=== PATIENT | female | born 1965 | race Caucasian/White ===

== ENCOUNTER 2016-12-26 11:21 | Emergency (ER) | payer BC, OTHER ==
[~2016-12-26] VITALS: Ht 167.6 cm; Wt 165.6 kg
[2016-12-26 11:49] LABS: BILIRUBIN,URINE NEGATIVE (NEG); GLUCOSE,URINE NEGATIVE (NEG); NITRITE,URINE NEGATIVE (NEG); PROTEIN,URINE NEGATIVE (NEG-TRACE); UROBILINOGEN,URINE 0.2 mg/dL (0.2 mg/dL)
--- NOTE | 2016-12-26 11:59 | ED.ADGEN ---
Past Medical History Past Medical History: Fibromyalgia, Other Additional Past Medical Histor: DJD Past Surgical History: Appendectomy, Cholecystectomy, Tubal ligation Additional Information: / PAD Alcohol Use: Occasionally Drug Use: None Adult General Chief Complaint Chief Complaint: ABDOMINAL PAIN HPI HPI Patient is a 51 year old woman, history of degenerative disc disease, fibromyalgia, bowel obstruction 13 years ago after an appendectomy, morbid obesity, who presents to the emergency department with a complaint of crampy abdominal pain located in the periumbilical region 3 days, associated with nausea. Denies any vomiting, states her last bowel movement was this morning, and was loose. Denies any blood in her stool, denies any emesis. States that she 's had more frequent urinations with a past several days, denies any dysuria. Denies any flank pain, any swelling of her extremity is, any chest pain or shortness breath, any fevers or chills. No injuries. Does smoke a half-pack of cigarettes daily, denies any drugs or alcohol. Review of Systems Review of Systems Constitutional: Denies fever or chills. [] Eyes: Denies change in visual acuity. [] HENT: Denies nasal congestion or sore throat. [] Respiratory: Denies cough or shortness of breath. [] Cardiovascular: Denies chest pain or edema. [] GI: Crampy periumbilical abdominal pain, associated nausea, no vomiting, no bloody stools or diarrhea. : Denies dysuria. Complaining of frequency and urgency over the past several days. Musculoskeletal: Denies back pain or joint pain. [] Integument: Denies rash. [] Neurologic: Denies headache, focal weakness or sensory changes. [] Endocrine: Denies polyuria or polydipsia. [] Lymphatic: Denies swollen glands. [] Psychiatric: Denies depression or anxiety. [] Current Medications Current Medications Current Medications Medications (Trade) Dose Ordered Sig/Nino Start Time Stop Time Status Last Admin Dose Admin Ketorolac Tromethamine (Toradol) 10 mg 1X ONCE 12/26/16 12:15 12/26/16 12:16 DC 12/26/16 13:14 10 MG Ondansetron HCl (Zofran) 4 mg 1X ONCE 12/26/16 12:15 12/26/16 12:16 DC 12/26/16 13:12 4 MG Allergies Allergies Allergies Coded Allergies Type Severity Reaction Last Updated Verified Sulfa (Sulfonamide Antibiotics) Adverse Reaction Intermediate VOMITING Yes Physical Exam Physical Exam Constitutional: Well developed, well nourished, no acute distress, non-toxic appearance. [] HENT: Normocephalic, atraumatic, bilateral external ears normal, oropharynx moist, no oral exudates, nose normal. [] Eyes: PERRLA, EOMI, conjunctiva normal, no discharge. [] Neck: Normal range of motion, no tenderness, supple, no stridor. [] Cardiovascular:Heart rate regular rhythm, no murmur, S1, S2, no rubs or gallops. [] Lungs & Thorax: Bilateral breath sounds clear to auscultation, no wheezing, rhonchi, rales. No chest tenderness or crepitus. [] Abdomen: Bowel sounds normal, obese, soft, no tenderness, no rebound, rigidity, no guarding, no masses, no pulsatile masses. [] Skin: Warm, dry, no erythema, no rash. [] Back: No tenderness, no CVA tenderness. [] Extremities: No tenderness, no cyanosis, no clubbing, ROM intact, no edema. [] Neurologic: Alert and oriented X 3, normal motor function, normal sensory function, no focal deficits noted. [] Psychologic: Affect normal, judgement normal, mood normal. [] Current Patient Data Vital Signs Vital Signs Date Time Temp Pulse Resp B/P Pulse Ox O2 Delivery O2 Flow Rate FiO2 12/26/16 14:00 66 15 168/106 99 Room Air 12/26/16 11:48 98.0 98.0 Lab Values Laboratory Tests Test 12/26/16 11:30 12/26/16 11:45 12/26/16 13:10 Urine Collection Type Unknown Urine Color Yellow Urine Clarity Clear Urine pH 6.0 Urine Specific [place] 1.015 Urine Protein Negativemg/dL (NEG-TRACE) Urine Glucose (UA) Negativemg/dL (NEG) Urine Ketones (Stick) Negativemg/dL (NEG) Urine Blood Negative (NEG) Urine Nitrite Negative (NEG) Urine Bilirubin Negative (NEG) Urine Urobilinogen Dipstick 0.2mg/dL (0.2 mg/dL) Urine Leukocyte Esterase Negative (NEG) Urine RBC 0/HPF (0-2) Urine WBC 1-4/HPF (0-4) Urine Squamous Epithelial Cells Mod/LPF Urine Bacteria Mod/HPF (0-FEW) Urine Mucus Mod/LPF Urine Test Negative (NEG) White Blood Count 9.6x10^3/uL (4.0-11.0) Red Blood Count 4.75x10^6/uL (3.50-5.40) Hemoglobin 11.7g/dL (12.0-15.5) L Hematocrit 36.2% (36.0-47.0) Mean Corpuscular Volume 76fL (79-100) L Mean Corpuscular Hemoglobin 25pg (25-35) Mean Corpuscular Hemoglobin Concent 32g/dL (31-37) Red Cell Distribution Width 18.6% (11.5-14.5) H Platelet Count 388x10^3/uL (140-400) Neutrophils (%) (Auto) 63% (31-73) Lymphocytes (%) (Auto) 29% (24-48) Monocytes (%) (Auto) 5% (0-9) Eosinophils (%) (Auto) 2% (0-3) Basophils (%) (Auto) 1% (0-3) Neutrophils # (Auto) 6.1x10^3uL (1.8-7.7) Lymphocytes # (Auto) 2.7x10^3/uL (1.0-4.8) Monocytes # (Auto) 0.4x10^3/uL (0.0-1.1) Eosinophils # (Auto) 0.2x10^3/uL (0.0-0.7) Basophils # (Auto) 0.1x10^3/uL (0.0-0.2) Sodium Level 143mmol/L (136-145) Potassium Level 4.0mmol/L (3.5-5.1) Chloride Level 104mmol/L (98-107) Carbon Dioxide Level 31mmol/L (21-32) Anion Gap 8 (6-14) Blood Urea Nitrogen 12mg/dL (7-20) Creatinine 0.6mg/dL (0.6-1.0) Estimated GFR (Cockcroft-Gault) 106.3 BUN/Creatinine Ratio 20 (6-20) Glucose Level 96mg/dL (70-99) Calcium Level 9.0mg/dL (8.5-10.1) Total Bilirubin 0.2mg/dL (0.2-1.0) Aspartate Amino Transferase (AST) 22U/L (15-37) Alanine Aminotransferase (ALT) 33U/L (14-59) Alkaline Phosphatase 82U/L (46-116) Total Protein 7.2g/dL (6.4-8.2) Albumin 3.5g/dL (3.4-5.0) Albumin/Globulin Ratio 0.9 (1.0-1.7) L Lipase 174U/L (73-393) Influenza Type A Antigen Negative (NEGATIVE) Influenza Type B Antigen Negative (NEGATIVE) Laboratory Tests 12/26/16 13:10 Laboratory Tests 12/26/16 13:10 EKG EKG [] Interpretation Time: Not indicated. Radiology/Procedures Radiology/Procedures [] [facility] [address] [place] [address] IMAGING REPORT Signed PATIENT: JUAN LAMAS ACCOUNT: [id number] : 1965 LOCATION: ER AGE: 51 SEX: F EXAM STATUS: REG ER ORD. PHYSICIAN: DEBORAH GERARDO DO REASON: Abd pain/nausea x 3 days PROCEDURE: ACUTE ABDOMEN SERIES Abdomen series with chest, 3 views, 12/26/2016: History: Abdominal pain and nausea Gas is present in large and small bowel in a nonspecific pattern. No free air is seen in the abdomen. There is no evidence of organomegaly. Surgical clips are present in the right upper quadrant. Numerous pelvic calcifications are probably phleboliths. Mild degenerative changes are evident in the spine. The heart size is normal. The lungs are clear. There is no evidence of pleural fluid. IMPRESSION: No acute abdominal abnormality is detected. DICTATED and SIGNED BY: WOODROW RODRIGUEZ MD DATE: 12/26/16 7213 CC: DEBORAH GERARDO DO; SORAIDA HOSKINS MD ~ Course & Med Decision Making Course & Med Decision Making Pertinent Labs and Imaging studies reviewed. (See chart for details) Patient is agreeable to receiving laboratory studies and acute abdominal series , she is concerned for possible obstruction or infection. Mild tenderness noted on examination, acute abdominal series not reveal any evidence of obstruction or other concerning findings. Laboratory studies not reveal any evidence of infection or other abnormalities. I did discuss the signs and patient, she is receive Toradol, Zofran ED on IV fluids, and is feeling better at this time. We did discuss concerning symptoms that prompt return, and follow-up with her primary care provider. Patient voiced understanding and agreement, she may be experiencing a viral type illness, discussed use of a bland diet, and Bentyl and Zofran at home as needed, always stay well-hydrated. Patient voiced understanding and agreement with this plan, discharged home in stable condition with plan as above. Dragon Disclaimer Dragon Disclaimer This electronic medical record was generated, in whole or in part, using a voice recognition dictation system. Departure Impression: Primary Impression: Abdominal pain Disposition: HOME, SELF-CARE Condition: IMPROVED Scripts Ondansetron Hcl (Zofran)4 Mg Tablet1 Tab PO PRN Q6-8HRS #12 TAB Prov:DEBORAH GERARDO DO 12/26/16 Dicyclomine Hcl (Bentyl)10 Mg Vbdvdgd15 Mg PO QID PRN PAIN #12 TAB Prov:DEBORAH GERARDO DO 12/26/16 Problem Qualifiers Primary Impression: Abdominal pain Abdominal location: generalized Qualified Code: R10.84 - Generalized abdominal pain DEBORAH GERARDO DO Dec 26, 2016 11:58
[2016-12-26 12:06] LABS: RBC,URINE 0 /HPF (0-2)
[2016-12-26 12:07] LABS: BACTERIA,URINE MOD /HPF (0-FEW); SQUAMOUS EPITHELIAL CELL,UR MOD /LPF
[2016-12-26] MEDS ORDERED: ONDANSETRON PF 4 MG/2 ML VIAL. IV ONE (12:15)
[2016-12-26] MEDS ORDERED: KETOROLAC 15 MG/ML VIAL. IV ONE (12:15)
[2016-12-26 13:15] LABS: BASO # 0.1 x10^3/uL (0.0-0.2); BASO % 1 % (0-3); EOS % 2 % (0-3); HEMATOCRIT 36.2 % (36.0-47.0); HEMOGLOBIN 11.7 g/dL (12.0-15.5); LYMPH # 2.7 x10^3/uL (1.0-4.8); LYMPH % 29 % (24-48); MEAN CORPUSCULAR HEMOGLOBIN 25 pg (25-35); MEAN CORPUSCULAR HGB CONC 32 g/dL (31-37); MEAN CORPUSCULAR VOLUME 76 fL (79-100); MONO % 5 % (0-9); NEUT % 63 % (31-73); PLATELET COUNT 388 x10^3/uL (140-400); RED BLOOD COUNT 4.75 x10^6/uL (3.50-5.40); RED CELL DISTRIBUTION WIDTH 18.6 % (11.5-14.5); WHITE BLOOD COUNT 9.6 x10^3/uL (4.0-11.0)
--- NOTE | 2016-12-26 13:22 | RAD ---
Abdomen series with chest, 3 views, 12/26/2016: History: Abdominal pain and nausea Gas is present in large and small bowel in a nonspecific pattern. No free air is seen in the abdomen. There is no evidence of organomegaly. Surgical clips are present in the right upper quadrant. Numerous pelvic calcifications are probably phleboliths. Mild degenerative changes are evident in the spine. The heart size is normal. The lungs are clear. There is no evidence of pleural fluid. IMPRESSION: No acute abdominal abnormality is detected.
[2016-12-26 13:26] LABS: CREATININE 0.6 mg/dL (0.6-1.0); GFR 106.3
[2016-12-26 13:34] LABS: NEG OBC UR NEG; POS OBC UR POS
[2016-12-26 13:35] LABS: OBC FLU VALID
[2016-12-26 13:36] LABS: ALBUMIN 3.5 g/dL (3.4-5.0); ALBUMIN/GLOBULIN RATIO 0.9 (1.0-1.7); TOTAL BILIRUBIN 0.2 mg/dL (0.2-1.0); TOTAL PROTEIN 7.2 g/dL (6.4-8.2)
[2016-12-26 14:00] VITALS: BP 168/106
[2016-12-26] MEDS ORDERED: ONDA4TAB7 PO (14:31)
[2016-12-26] MEDS ORDERED: DICY10CA53 PO (14:31)
== END 2016-12-26 14:40 | disposition home or self-care (01) ==
LOC: ER 11:21
DX: R10.33 Periumbilical pain (principal); E66.01 Morbid (severe) obesity due to excess calories; M79.7 Fibromyalgia; F17.200 Nicotine dependence, unspecified, uncomplicated; Z88.2 Allergy status to sulfonamides; Z90.49 Acquired absence of other specified parts of digestive tract; Z98.51 Tubal ligation status
CPT/HCPCS: 36415; 74022; 80053; 81001; 81025; 83690; 85027; 87804; 96374; 96375; 99285; J1885; J2405

== ENCOUNTER → 2017-05-20 | Outpatient (CLI) | payer BC ==
[~2017-05-20] MED LIST: DICY10CA53 PO; GABA800T2 PO; IBUP-1060 PO; IOHEXOL 180 MG/ML 10 ML VIAL. ONE; OMEP20CA9 PO; ONDA4TAB7 PO; TRAM50TA PO; methylPREDNISolone ACETATE 40 MG/ML VIAL. ONE; methylPREDNISolone ACETATE 80 MG/ML VIAL. ONE
== END | disposition home or self-care (01) ==
LOC: PNCL 10:21
PROVIDERS: ATTEND Anesthesiology
DX: M51.16 Intervertebral disc disorders with radiculopathy, lumbar region (principal); M96.1 Postlaminectomy syndrome, not elsewhere classified; Z88.2 Allergy status to sulfonamides
CPT/HCPCS: 62323; J1030; J1040

== ENCOUNTER → 2017-06-03 | Outpatient (CLI) | payer BC ==
--- NOTE | 2017-06-03 23:31 | PAIN ---
DATE OF SERVICE: 06/03/2017 PROGRESS NOTE FOR PAIN CLINIC DIAGNOSES: Lumbar radiculopathy with lumbar degenerative disk disease and lumbar post-laminectomy syndrome. HISTORY OF PRESENT ILLNESS: This is a 51-year-old female who returns for followup status post lumbar epidural steroid injection x 1. The patient reports about 50% improvement initially with some pain returning now over the past week or so in the low back and bilateral lower extremities. The patient reports it is still in the low back aching, burning with dull, shooting, sharp and radiating pain into the bilateral posterior gluteus, posterior thighs and posterior calf; ____ however, in the morning. The patient reports the morning, she feels well for about 6 to 7 hours when she is up and around getting into place and working as the day goes on, again it is worst. The patient reports she is now not awaken from sleep at night. She is sleeping well and reports that day goes on, the pain does become worse at a 3 on a scale of 10 at least, can be as high as a 10 on scale 10 with ambulation and standing throughout the day. The patient reports no new motor or sensory deficits, no new bowel or bladder incontinence or other complaints. PHYSICAL EXAMINATION: VITAL SIGNS: The patient's blood pressure 130/85, pulse 79, respirations are 18, temperature 98.2 degrees Fahrenheit, height is 5 feet 6 inches, and weight is 377 pounds. GENERAL: The patient is awake, alert, oriented, appropriate, very pleasant demeanor. HEENT: Head shows normocephalic, atraumatic. Extraocular movements are intact and symmetrical. Oral cavity shows mucous membranes moist and pink. Dentition is intact. NECK: Shows anterior throat supple without palpable lymphadenopathy noted. Swallow reflex is symmetrical. Neck shows full rotational motion of cervical spine. CHEST: Shows normal on inspection. Breath sounds clear to auscultation bilaterally. HEART: Shows S1 and S2 clear. ABDOMEN: Soft, nontender, nondistended. No palpable organomegaly noted. No rebound or guarding demonstrated. BACK: Shows spine grossly midline. Normal appearing thoracic kyphosis, some minor flattening of lumbar lordotic curvature. Lumbar paraspinous musculature shows symmetrical on inspection with palpation shows some moderate tenderness bilaterally, but without radiation. The patient shows good rotational motion both laterally as well as extension and flexion without significant pain reported in the low back. EXTREMITIES: Lower extremities show deep tendon reflexes at 1+/4 in the patellar and tendo calcaneus tendons. Motor exam is strong with 5/5 dorsiflexion, extension, quadriceps and hamstring flexion equal. Options were discussed with the patient and the patient's old chart was reviewed as her current medication regimen updated. Current review of systems updated today as well. We will proceed with a second lumbar epidural steroid injection today with fluoroscopic guidance. Risks were again discussed including, but not limited to bleeding, infection, possibility of epidural hematoma, subsequent neurologic compromise, dural puncture, headaches, spinal cord and/or nerve damage, side effects of steroid medication and poor results regarding pain control. The patient understands and wishes to proceed. The patient will return to clinic in approximately 2 weeks for followup, was counseled on activity level and side effects to be aware of. DIAGNOSIS: Lumbar radiculopathy with lumbar degenerative disk disease and post-lumbar laminectomy syndrome. PROCEDURE: Lumbar epidural steroid injection in translaminar approach at the L5-S1 level using C-arm fluoroscopic guidance under sterile prep and drape using local anesthetic. MEDICATION INDICATED: 120 mg Depo-Medrol plus 10 mL preservative-free normal saline and 2 mL of Isovue contrast. DISCHARGE: Stable. The patient tolerated procedure well, had no complications. ALEJANDRO MARTÍNEZ MD DR: MARLIN/damir JOB#: [id number] / [id number]
== END | disposition home or self-care (01) ==
LOC: PNCL 14:02
PROVIDERS: ATTEND Anesthesiology
DX: M51.16 Intervertebral disc disorders with radiculopathy, lumbar region (principal); M96.1 Postlaminectomy syndrome, not elsewhere classified; Z88.2 Allergy status to sulfonamides
CPT/HCPCS: 62323; J1030; J1040

== ENCOUNTER → 2017-06-17 | Outpatient (CLI) | payer BC ==
--- NOTE | 2017-06-17 19:04 | PAIN ---
DATE OF SERVICE: 06/17/2017 DIAGNOSES: Lumbar radiculopathy with lumbar degenerative disk disease and post-lumbar laminectomy syndrome. HISTORY OF PRESENT ILLNESS: The patient is a 51-year-old female who returns for followup status post lumbar epidural steroid injection x 2. The patient reports about the same degree of relief after her first injection only about 50% or less and not as significant as improvement after last injection. The patient reports still some burning and aching, dull, radiating constant unbearable type pain in the low back, radiating to bilateral posterior gluteus, posterior thighs, and hips, some tightness and cramping in the mid back as well that is more of a sharper hotter burning pain between the shoulder blades. The patient reports it is worse with sitting for prolonged periods, greater than about an hour, but worse with standing and walking significantly after about 15 minutes. The patient reports that it does not awake her from sleep at night. She feels best when she is lying flat, reports ____ her water therapy yet. She had a conflict at work and had to reschedule it, but is starting it in about 1 week. The patient reports no new motor or sensory deficits, no new bowel or bladder incontinence or other complaints. PHYSICAL EXAMINATION: VITAL SIGNS: Today, the patient's blood pressure is 148/92, pulse 80, respirations 18, and temperature is 98.1 degrees Fahrenheit. Height is 5 feet 6 inches and weight is 375 pounds. GENERAL: The patient is awake, alert, oriented, appropriate, very pleasant demeanor. HEENT: Head shows normocephalic, atraumatic. Extraocular movements are intact and symmetrical. Oral cavity shows mucous membranes moist and pink. Dentition is intact. NECK: Shows the anterior throat supple without palpable lymphadenopathy noted. Swallow reflex is symmetrical. CHEST: Shows normal on inspection. Breath sounds are clear to auscultation bilaterally. HEART: Shows S1 and S2 clear. ABDOMEN: Obese, soft, nontender, and nondistended. No palpable organomegaly, no rebound or guarding demonstrated. BACK: Shows spine grossly in the midline. Lumbar paraspinous musculature shows a well-healed surgical scar. Paraspinous is symmetrical without evidence of atrophy or hypertrophy, shows good rotational motion both laterally as well as extension and flexion without difficulty. EXTREMITIES: Lower extremities shows deep tendon reflexes 1+ in the patellar and tendo calcaneus tendons. Motor exam is strong with 5/5 dorsiflexion and extension. Peripheral pulses are 1+ bilaterally. Options were discussed with the patient. The patient's old chart was reviewed and her current medication regimen updated. Current review of systems updated today as well. We will proceed with a lumbar epidural steroid injection, the third in the series, today with fluoroscopic guidance. Risks were again discussed including, but not limited to bleeding, infection, possibility of epidural hematoma and subsequent neurologic compromise, dural puncture, headaches, spinal cord and/or nerve damage, side effects of steroid medication and poor results regarding pain control. The patient understands and wishes to proceed. The patient will return to clinic in approximately 2 weeks for followup. She was counseled ____ side effects to be aware of. The patient will continue with her physical therapy as scheduled with water therapy next week and was encouraged to increase her activity as tolerated. DIAGNOSIS: Lumbar radiculopathy with lumbar degenerative disk disease and post-lumbar laminectomy syndrome. PROCEDURE: Lumbar epidural steroid injection in translaminar approach at L5-S1 level using C-arm fluoroscopic guidance under sterile prep and drape using local anesthetic. MEDICATIONS INJECTED: Total of 120 mg Depo-Medrol plus 10 mL of normal saline and 2 mL ____ contrast. CONDITION AT DISCHARGE: Stable. The patient tolerated procedure well, had no complications. ALEJANDRO MARTÍNEZ MD DR: MARLIN/damir JOB#: [id number] / [id number]
== END | disposition home or self-care (01) ==
LOC: PNCL 13:25
PROVIDERS: ATTEND Anesthesiology
DX: M51.16 Intervertebral disc disorders with radiculopathy, lumbar region (principal); M96.1 Postlaminectomy syndrome, not elsewhere classified; Z88.2 Allergy status to sulfonamides
CPT/HCPCS: 62323; J1030; J1040

== ENCOUNTER → 2017-08-05 | Outpatient (CLI) | payer BC ==
[~2017-08-05] MED LIST changes: -IOHEXOL 180 MG/ML 10 ML VIAL. ONE; -methylPREDNISolone ACETATE 40 MG/ML VIAL. ONE; -methylPREDNISolone ACETATE 80 MG/ML VIAL. ONE
--- NOTE | 2017-08-06 13:45 | SLEEP ---
DATE OF STUDY: 08/05/2017 ATTENDING PHYSICIAN: Dr. Soraida Scales. The patient is 51 years old who weighs 366 pounds with a BMI of 59. The patient's [place] score was 18, suggesting severe subjective hypersomnia. Sleep study was performed at [facility]. This was a split night study. During the night study, the patient spent 435 minutes in bed and slept for 379 minutes with a sleep efficiency of 87%. Sleep latency was 3 minutes with a REM latency of 311 minutes. Overall, sleep architecture showed increased stage I sleep, normal stage II sleep, normal slow wave and reduced REM sleep. During the initial diagnostic portion of the study, the patient slept for 131 minutes. During that time, the patient had 270 obstructive apneas, 3 hypopneas, no central or mixed apneas. The patient did have some muscle artifact, making the scoring a bit difficult. Review of EKG revealed normal sinus rhythm. Occasional PACs seen. Average heart rate was 88 beats per minute. No sustained arrhythmias were observed. Review of nocturnal oximetry study revealed an average oxygen saturation of 96% with the lowest of 73%. 62% of time oxygen saturation remained between 80% and 89%. PLMS were not seen. The patient met the criteria for CPAP initiation. It was started at 5 cm water and titrated up to 14 cm of water. At the final pressure, the patient slept for 112 minutes. Long REM period was seen and supine sleep was seen throughout. The patient's AHI was reduced to 1 per hour and oxygen saturation remained above 88% with one spot desaturation of 87%. The patient used small sized nasal pillows. IMPRESSION: 1. Severe sleep apnea-hypopnea syndrome with an AHI 125 per hour. 2. Nocturnal hypoxia, secondary to ÓSCAR, but resolved with CPAP. 3. No clinically significant PLMS. RECOMMENDATIONS: 1. CPAP at 14 cm water completely eliminated patient's sleep apnea and should be used on a nightly basis. 2. Follow up in 4-6 weeks to assess compliance with CPAP and to document clinical improvement. 3. Weight loss is strongly advised. 4. Avoid DRY WALL INSTALLER depressants. 5. Caution regarding driving until symptoms of sleep apnea resolve with the use of CPAP. PIETER MITCHELL MD DR: ZORAN/damir JOB#: [id number] / [id number] SORAIDA Carlos MD MTDD
== END | disposition home or self-care (01) ==
LOC: RT 18:24
PROVIDERS: ATTEND Family Medicine
DX: G47.33 Obstructive sleep apnea (adult) (pediatric) (principal)
CPT/HCPCS: 95810

== ENCOUNTER → 2019-11-08 | Outpatient (CLI) | payer BC, OTHER ==
[~2019-11-08] MED LIST changes: -GABA800T2 PO; +GABA800T5 PO; +OMEP20CA16 PO; -OMEP20CA9 PO
--- NOTE | 2019-11-08 11:31 | KCIC ---
EXAM: Pelvic sonogram. HISTORY: Postmenopausal bleeding. TECHNIQUE: Sonographic imaging of the pelvis was performed. COMPARISON: None. FINDINGS: The exam is limited due to patient body habitus. The uterus measures 9.6 x 5.8 x 5.4 cm. There are multiple uterine fibroids, the largest of which measure 3.1 x 3.0 x 2.2 cm within the right uterine fundus, 2.0 x 2.0 x 1.7 cm within the lower uterine segment and 2.3 x 2.2 x 2.1 cm within the mid fundus, the latter of which obscures the endometrium. There are nabothian cysts within the cervix. The ovaries are obscured. There is no pelvic free fluid. IMPRESSION: 1. Multiple uterine fibroids, the largest of which measures 3.1 cm, 2.0 cm and 2.3 cm. The 2.3 cm fibroid obscures the endometrium and may be submucosal in location. The endometrial stripe cannot be measured. 2. Obscured ovaries. Electronically signed by: Lula Cárdenas MD (11/08/2019 11:27 AM) [facility]
== END | disposition home or self-care (01) ==
LOC: KCIC US 09:46
PROVIDERS: ATTEND Family Medicine
DX: D25.9 Leiomyoma of uterus, unspecified (principal); N88.8 Other specified noninflammatory disorders of cervix uteri; N95.0 Postmenopausal bleeding
CPT/HCPCS: 76830; 76856

== ENCOUNTER → 2019-11-23 | Outpatient (CLI) | payer SELFPAY ==
--- NOTE | 2019-11-23 18:16 | KCIC ---
Examination: CT CALCIUM SCORING History: Fatty liver, family history of heart disease, hyperlipidemia, 22 year smoking history Comparison/Correlation: None Technique: With retrospective electrocardiogram gating axial reconstructed noncontrast images of the chest at the level of the coronary arteries was performed. The upper thorax was not fully included for purposes of this exam. Images were post processed on workstation and calcium score calculated using the modified Agatston Janowitz protocol. Findings: Calcium score Left main coronary artery 0 Left anterior descending artery 1 Left circumflex artery 0 Right coronary artery 0 Total coronary calcium score is 1. Partially visualized lung raymundo are unremarkable. Fatty infiltration of the partially visualized liver noted. IMPRESSION: Total calcium score of 1 is present. This corresponds with less than 10 percent chance of having heart disease. Heart healthy lifestyle is recommended. PQRS Compliance Statement: One or more of the following individualized dose reduction techniques were utilized for this examination: 1. Automated exposure control 2. Adjustment of the mA and/or kV according to patient size 3. Use of iterative reconstruction technique Electronically signed by: Valentin Fabian MD (11/23/2019 6:12 PM) [facility]
== END | disposition home or self-care (01) ==
LOC: KCIC CT 08:54
PROVIDERS: ATTEND Internal Medicine Gastroenterology
DX: K76.0 Fatty (change of) liver, not elsewhere classified (principal); E66.9 Obesity, unspecified; Z91.89 Other specified personal risk factors, not elsewhere classified; F17.200 Nicotine dependence, unspecified, uncomplicated
CPT/HCPCS: 75571